=== PATIENT | female | born 1955 | race Caucasian/White ===

== ENCOUNTER 2024-02-10 15:38 | Emergency (ER) | payer MEDICARE, OTHER, SELFPAY ==
[2024-02-10 16:01] VITALS: BP 142/87
[2024-02-10 16:33] LABS: % Basophils 0.3 % (0-2); % Eosinophils 0.1 % (0-6); % Immature Granulocytes 0.4 % (0-0.5); % Monocytes 3.5 % (1.7-9.3); % Neutrophils 86.7 % (42.2-75.2); Absolute Monocytes 0.4 10^3/uL (0.1-0.6); Absolute Neutrophils 9.2 10^3/uL (1.4-6.5); Hematocrit 39.1 % (37.0-47.0); Hemoglobin 13.1 g/dL (12.0-16.0); Mean Corp Hgb Conc. 33.5 g/dL (33.0-37.0); Mean Corpuscular Hgb 32.1 pg (27.0-31.0); Mean Corpuscular Volume 95.8 fL (81.0-99.0); Nucleated Red Blood Cells % 0 %; Platelet Count 194 10^3/uL (130-400); Red Blood Cell Count 4.08 10^6/uL (4.20-5.40); Red Cell Dist. Width 12.1 % (11.5-14.5); White Blood Cell Count 10.6 10^3/uL (4.8-10.8)
[2024-02-10 16:43] LABS: ALT (SGPT) 37 U/L (0-35); AST (SGOT) 39 U/L (14-36); Albumin 4.3 g/dl (3.5-5.0); Alkaline Phosphatase 96 U/L (38-126); Blood Urea Nitrogen 22 mg/dl (7-17); Calcium 9.5 mg/dl (8.4-10.2); Carbon Dioxide 23 mmol/L (22-30); Chloride 105 mmol/L (98-107); Glucose 134 mg/dl (70-99); Sodium 136 mmol/L (135-145); Total Bilirubin 0.5 mg/dl (0.2-1.3); Total Protein 6.7 g/dl (6.3-8.2); eGFR > 60.00
[2024-02-10 16:44] LABS: Lipase 119 U/L (23-300)
--- NOTE | 2024-02-10 20:29 | ED.GENMED ---
History of Present Illness
General
Chief Complaint: Abdominal Pain
Source: patient
Time Seen by Provider: 02/10/24 19:39
Travel History
Have you had any contact with someone who has COVID-19?: No
Do you have any symptoms of coronavirus? Fever > 100 degrees, chills, cough, shortness of breath, sore throat, loss of taste or smell, muscle aches, or headache?: No
History of Present Illness
History of Present Illness:
68-year-old female with no significant past medical history presenting to the emergency department for evaluation of right-sided abdominal pain that started earlier this afternoon around noon, sudden and moderate to severe, relieved when laying
reclined, due to the severity of the pain EMS was contacted bring patient to the ER. She reports since getting to the ER her pain is now mostly resolved if not fully resolved. She admits to some associated nausea with the pain initially but denies
any symptoms presently. She denies any fevers, chills, rigors. Denies any history of similar. No urinary symptoms, bowel changes, chest pain, shortness of breath or any other concerns. Did not take anything for symptoms prior to arrival.
Past History
Past History
ED Past Medical History: None
ED Past Surgical History: Orthopedic and Urological
Social History
Tobacco: Non-smoker
Alcohol: Occasional (A couple of drinks multiple times per week)
Drug: None
Personal:
Living: with family
Review of Systems
Review of Systems
All Other Systems: ROS reviewed and negative except as documented in HPI and ROS
Phy Exam
Physical Exam
Physical Exam:
GENERAL: Alert , in no apparent distress
EYE: clear conjunctiva b/l
HEAD: NCAT
ENT: o/p clr, mmm.
CARDIAC: Regular rate and rhythm .
LUNGS: Clear breath sounds bilaterally, no acute respiratory distress, no wheezes/rales/rhonchi
ABDOMEN: Soft, without focal tenderness, no r/g, no cvat, negative Pittman sign, no tenderness at McBurney's point
NEUROLOGICAL: Alert and oriented
SKIN: Warm and dry, skin intact.
MUSCULOSKELETAL: well perfused.
PSYCH: Normal and appropriate interaction.
Scores
Heart Failure Risk
Heart Failure Risk Score: Not Applicable
Heart Score for Chest Pain Patients
STEMI patient?: Not applicable
Withdrawal Assessment of Alcohol
Withdrawal Assessment Completed?: Not applicable
Course
Orders/Labs/Results
Orders:
Orders
02/10/24 16:12
Complete Blood Count/With Diff Urgent
Comprehensive Metabolic Panel Urgent
Lipase Urgent
02/10/24 20:00
US Abdomen Complete/Upper Urgent
Comment:
Reason For Exam: RUQ pain
02/10/24 20:25
Urinalysis Reflex To Culture Urgent
Date Specimen was Collected: 02/10/24
Time Specimen was Collected: 20:02
Urine Microscopic Reflex Cult Urgent
Abnormal Lab Results
02/10/24 02/10/24
16:12 20:25
RBC 4.08 L 10^6/uL
(4.20-5.40)
MCH 32.1 H pg
(27.0-31.0)
MPV 12.0 H fL
(7.4-10.4)
Absolute Neuts (auto) 9.2 H 10^3/uL
(1.4-6.5)
Absolute Lymphs (auto) 1.0 L 10^3/uL
(1.2-3.4)
Neutrophils % 86.7 H %
(42.2-75.2)
Lymphocytes % 9.0 L %
(20.5-51.1)
BUN 22 H mg/dl
(7-17)
Creatinine 0.5 L mg/dL
(0.6-1.0)
Glucose 134 H mg/dl
(70-99)
AST 39 H U/L
(14-36)
ALT 37 H U/L
(0-35)
Urine Ketones 3+ A
(Negative)
Ur Occult Blood Reflex 4+ A
(Negative)
Urine RBC >100 A /HPF
(0-2)
Urine Bacteria (Reflex) Few A
(Negative)
02/10/24 16:12
02/10/24 16:12
Vital Signs
Initial and Last Documented VS:
Initial Vital Signs
Temp Pulse Resp BP Pulse Ox
98.1 F 54 20 142/87 100
02/10/24 16:01 02/10/24 16:01 02/10/24 16:01 02/10/24 16:01 02/10/24 16:01
Last Documented Vital Signs
Temp Pulse Resp BP Pulse Ox
98.1 F 64 18 126/77 97
02/10/24 16:01 02/10/24 21:22 02/10/24 21:22 02/10/24 21:22 02/10/24 21:22
MDM/Problems Addressed
Differential Diagnosis Includes:
Gallstones, renal/ureteral colic, appendicitis, duodenitis, GERD/gastritis, pancreatitis
MDM/Problems Addressed:
68-year-old female presenting to the emergency department for evaluation of sudden onset right upper quadrant abdominal pain around noon, symptoms fully resolved at time of my examination. Did not take anything for pain prior to arrival. Labs have
been initiated in triage. There is no leukocytosis. There is mild AST and ALT elevation which could correlate with patient's history of frequent alcohol. Normal bilirubin. Will obtain an ultrasound of the abdomen as well as urinalysis.
Reassessment following.
*Radiology
Radiology exam reviewed: radiology read reviewed
*Pulse Oximetry
Patient hypoxic: no
*Critical Care Note
Total Time (30-74mins, 75-104mins- exclusive of procedures): Not Applicable
Patient Management
Escalation/DeEscalation of care consider admission/obs:
Patient's ultrasound shows mild gallbladder sludge and stones but no secondary findings to suggest acute cholecystitis. There are also noted nonobstructing bilateral renal stones. There is no evidence for hydronephrosis. Overall I suspect
patient's symptoms were more likely related to biliary colic and likely symptomatic cholelithiasis. Patient was provided with a printout of her ultrasound report. We discussed low-fat diet and eating smaller meals to avoid reoccurrence of
symptoms. Patient was given information for general surgery to follow-up with as needed. She remains pain-free and symptom-free. Stable for discharge home and outpatient management. Aware of return precautions
ED Attending Note
-
Portions of this chart may have been created with voice recognition software.� Occasional wrong word or��sound alike� substitutions may have occurred due to the inherent limitations of voice recognition software.
Discharge Plan
Departure
Patient Disposition: Home (Routine Discharge)
Date of Disposition: 02/10/24
Time of Disposition: 21:21
Patient with high blood pressure during this ER visit?: Yes
Discharge Problem:
Biliary colic
Instructions: Gallstones (DC)
Prescriptions:
No Action
multivitamin with folic acid [Tab-A-Telma] 1 TABLET tablet
1 tab PO DAILY
Referrals:
Alessandro Figueroa MD [Active] - (Call for appointment as needed)
UNKNOWN - PT DOES,NOT KNOW [Family Provider] -
Interventions
Interventions:
*Risk Screen - Suicide Last Done: 02/10/24 16:01
*General Assessment Last Done: 02/10/24 16:01
*Neglect/Abuse Screening Last Done: 02/10/24 16:01
ED- Fall Risk Assessment Last Done: 02/10/24 21:26
*ED COVID-19 Vaccine History Last Done: 02/10/24 21:26
*Nursing Disposition Last Done: 02/10/24 21:26
SP-Tfewms-Hrinmaqcku Assessment Last Done: 02/10/24 20:20
Discharge Date and Time
Discharge Date/Time: 02/10/24 21:26
Print Language: SLOVAK
[2024-02-10 20:35] LABS: Urine Albumin Trace (Neg - Trace); Urine Bilirubin Negative (Negative); Urine Character Slightly Cloudy (Clear); Urine Color Yellow; Urine Glucose Negative (Negative); Urine Ketone 3+ (Negative); Urine Leukocyte Negative (Negative); Urine Nitrite Negative (Negative); Urine Occult Blood 4+ (Negative); Urine Specific Gravity 1.025 (<1.030); Urine Urobilinogen Negative (Neg - 1+)
[2024-02-10 20:57] LABS: Urine Bacteria Few (Negative); Urine Red Blood Cell >100 /HPF (0-2)
[2024-02-10 21:22] VITALS: BP 126/77
== END 2024-02-10 21:26 | disposition home or self-care (01) ==
LOC: EMR 15:38
PROVIDERS: Physician Assistant Medical; Student in an Organized Health Care Education/Training Program; EMERGENCY PHYSICIAN Emergency Medicine
DX: K80.50 Calculus of bile duct without cholangitis or cholecystitis without obstruction (principal); N20.0 Calculus of kidney; R03.0 Elevated blood-pressure reading, without diagnosis of hypertension
CPT/HCPCS: 99284; 76700; 80053; 81003; 81015; 83690; 85025